=== PATIENT | female | born 1985 | race Caucasian/White ===

== ENCOUNTER → 2020-03-05 | Outpatient (CLI) | payer BC ==
--- NOTE | 2020-03-05 10:49 | RAD ---
Single AP standing view both knees and 2 views of the right knee without comparison for knee pain. FINDINGS: There is no fracture, dislocation, or acute osseous abnormality identified. No significant degenerative changes. There is suggestion of suprapatellar joint effusion however. IMPRESSION: 1. No acute osseous abnormality. There is suggestion of suprapatellar joint effusion. Electronically signed by: Ramakrishna Dykes MD (03/05/2020 10:47 AM) [id number]
== END ==
LOC: DXRAD 08:42
PROVIDERS: ATTEND Physician Assistant
DX: M25.561 Pain in right knee (principal); M25.562 Pain in left knee
CPT/HCPCS: 73560; 73565